=== PATIENT | female | born 1990 | race Caucasian/White ===

== ENCOUNTER 2017-02-23 18:11 | Emergency (ER) | payer OTHER ==
[2017-02-23 18:34] VITALS: BP 129/89; PULSE 94; RESP 16; TEMP 98.1; O2SAT 97
--- NOTE | 2017-02-23 19:39 | EDPHY ---
H & P Time Seen by Provider: 02/23/17 18:30 HPI/ROS: This patient was cutting an avocado with the ceramic knife at home with a knife slipped and caused a laceration to her left 4th finger and abrasion to the 5th finger shortly prior to arrival. She reports there is moderate to significant bleeding that slowed with direct pressure and she reports moderate pain associated with injury. She is accompanied by her . ROS: No numbness or tingling. No other neuro symptoms Musculoskeletal: No other injuries no bony pain. No difficulty moving the affected fingers. 5 point ROS is otherwise negative Past Medical/Surgical History: Otherwise healthy Smoking Status: Unknown if ever smoked Physical Exam: Physical Exam Vital signs are normal. General: No acute distress HEENT: Atraumatic. Eyes: Pupils equal and react to light. Extraocular motions are intact. Lungs: No respiratory distress. Cardiac: Brisk capillary refill is intact throughout. Skin: No rash or pallor. Extremities: Atraumatic normal except for left hand Left hand: Patient has a full-thickness laceration to the palmar aspect of 4th finger with moderate to heavy bleeding. The wound is 1.5 cm long full- thickness. The subcutaneous tissues evident. The flexor tendon is intact. She is neurovascularly intact beyond the wound. There is a superficial abrasion to the 5th finger on the palmar aspect as well. No active bleeding from the 5th finger. Neuro: Alert with no sensorimotor deficits in the affected finger. Constitutional: Initial Vital Signs Temperature (C) 36.7 C 02/23/17 18:20 Heart Rate 94 02/23/17 18:20 Respiratory Rate 16 02/23/17 18:20 Blood Pressure 129/89 H 02/23/17 18:20 O2 Sat (%) 97 02/23/17 18:20 O2 Delivery Mode Room Air MDM/Departure - MDM Procedures: Procedure Digital block: After verbal consent a 50:50 mix of 0.5% Marcaine with 2% lidocaine was injected to the base of the affected finger 7 mLs using a 27- gauge needle with good effect. This was done under sterile conditions. There were no complications The wound is 1.5 [id number]. The wound was copiously irrigated with saline. The wound was explored for foreign bodies and none were found. The wound was prepped and draped in the normal sterile fashion. The edges were reapproximated using 4 0 Prolene-7 running sutures with good hemostasis and cosmesis. The patient tolerated the procedure well. There were no complications - Depart Disposition: Home, Routine, Self-Care Clinical Impression: Finger laceration Qualifiers: Encounter type: initial encounter Finger: ring finger Damage to nail status: without damage Foreign body presence: without foreign body Laterality: left Qualified Code(s): S61.215A - Laceration without foreign body of left ring finger without damage to nail, initial encounter Condition: Good Instructions: Finger Laceration (ED) Additional Instructions: Diagnosis: Finger laceration Plan: Keep the wound clean and dry for the next 2 days. Then clean it daily with warm soapy water Return for suture removal in 10-12 days Ibuprofen Tylenol for pain as needed. Referrals: NONE *PRIMARY CARE P,. [Primary Care Provider] - As per Instructions
== END 2017-02-23 19:53 | disposition home or self-care (01) ==
LOC: CED 18:11
PROC: 0HQGXZZ Repair Left Hand Skin, External Approach (ICD-10-PCS; principal; 2017-02-23)
DX: S61.215A Laceration without foreign body of left ring finger without damage to nail, initial encounter (principal); W26.0XXA Contact with knife, initial encounter